=== PATIENT | female | born 1990 | race Caucasian/White ===

== ENCOUNTER 2017-09-19 08:00 | Outpatient (CLI) | payer BC ==
[2017-09-19 18:45] LABS: BASOPHILS % (AUTO) 0.6 %; EOSINOPHILS % (AUTO) 0.3 %; HCT - HEMATOCRIT 41.6 % (37.0-47.0); HGB - HEMOGLOBIN 13.9 g/dL (12.0-16.0); LYMPHOCYTES # (AUTO) 1.2 10^3/uL (1.5-3.5); LYMPHOCYTES % (AUTO) 15.7 %; MEAN CORPUSCULAR HEMOGLOBIN 30.6 pg (27.0-31.0); MEAN CORPUSCULAR HGB CONC 33.4 g/dL (32.0-36.0); MEAN CORPUSCULAR VOLUME 91.7 fL (81.0-99.0); MEAN PLATELET VOLUME 7.8 fL (7.9-10.8); MONOCYTES # (AUTO) 0.8 10^3/uL (0.0-1.0); NEUTROPHILS # (AUTO) 5.7 10^3/uL (1.5-6.6); NEUTROPHILS % (AUTO) 73.4 %; RED BLOOD COUNT 4.54 10^6/uL (4.20-5.40); RED CELL DISTRIBUTION WIDTH 13.2 % (12.0-15.0); UNCORRECTED WHITE BLOOD COUNT 7.7 x10^3/uL; WHITE BLOOD COUNT 7.7 x10^3/uL (4.8-10.8)
[2017-09-19 18:58] LABS: ALBUMIN/GLOBULIN RATIO 1.2 (1.0-2.2); BILIRUBIN,TOTAL 0.5 mg/dL (0.2-1.0); BUN - BLOOD UREA NITROGEN 8 mg/dL (6-20); CALCIUM 9.1 mg/dL (8.5-10.3); CARBON DIOXIDE - CO2 25 mmol/L (21-32); CHLORIDE 104 mmol/L (101-111); CREATININE 0.7 mg/dL (0.4-1.0); GFR - MDRD 100 (>89); GLUCOSE 87 mg/dL (70-100); POTASSIUM 3.9 mmol/L (3.5-5.0); SODIUM 138 mmol/L (135-145)
== END 2017-09-19 08:01 ==
LOC: LAB.WCP 08:00
PROVIDERS: ATTEND Physician Assistant Medical
DX: E01.0 Iodine-deficiency related diffuse (endemic) goiter (principal); B08.4 Enteroviral vesicular stomatitis with exanthem
CPT/HCPCS: 36415; 80053; 84443; 85025

== ENCOUNTER 2017-10-21 17:14 | Outpatient (CLI) | payer BC ==
--- NOTE | 2017-10-21 18:36 | Ultrasound Report ---
EXAM: THYROID ULTRASOUND EXAM DATE: 10/21/2017 05:49 PM. CLINICAL HISTORY: THYROMEGALY. COMPARISON: None. TECHNIQUE: Real time sonographic imaging of the thyroid was performed by the windows administrator. Multiple re presentative static images were saved for review. FINDINGS: THYROID GLAND: Right Lobe: 5.0 x 1.2 x 1.8 cm, volume 5.6 cc. Normal background echotexture. Right Lobe Nodules: Small hypoechoic nodule in the upper pole measuring 0.4 x 0.4 x 0.3 cm. Left Lobe: 5.3 x 0.9 x 1.6 cm, volume 4.0 cc. Normal background echotexture. Left Lobe Nodules: None. Isthmus: 0.35 cm AP. Isthmic Nodules: None. LYMPH NODES: No adenopathy demonstrated in the central or lateral compartment. OTHER: Prominent thrombus in the left jugular vein. IMPRESSION: 1. Essentially normal thyroid gland. 2. Large left jugular thrombus. Management recommendations are based on 2015 [place] [employer] Management Guidelines for A dult Patients with Thyroid Nodules and Differentiated Thyroid Cancer. RAD[facility] The above critical findings were discussed with ADRIA Rosas by Dr. Marcelo Duffy at 18:32 hrs on . Referring Provider Line: [phone] SITE ID: [id number]
== END 2017-10-21 17:15 | disposition home or self-care (01) ==
LOC: DI 17:14
PROVIDERS: ATTEND Physician Assistant Medical
DX: E01.0 Iodine-deficiency related diffuse (endemic) goiter (principal); I82.C12 Acute embolism and thrombosis of left internal jugular vein
CPT/HCPCS: 76536

== ENCOUNTER 2017-10-21 18:47 | Emergency (ER) | payer BC ==
[2017-10-21] MEDS ORDERED: ENOXAPARIN 80 MG/0.8 ML SYRINGE SUBQ STA (19:05)
--- NOTE | 2017-10-21 19:07 | ED Physician Documentation ---
History of Present Illness - Stated complaint Stated Complaint: Left Jugular Thrombus - Chief complaint Chief Complaint: General - History obtained from History obtained from: Patient, Family - History of Present Illness Timing: Other (Previously healthy 27-year-old woman with history of back surgery , a month ago she was being evaluated for cegs-njqu-zry-mouth disease, she had the associated sore throat and rash which are all now gone. During that evaluation her primary care physician noticed an enlarged thyroid. She was sent for a thyroid ultrasound, because of a scheduling issue there was a delay to having that done but she had it done tonight and it was noted and she was sent to the ER for what looks like an occlusive acute left internal jugular thrombus. She has no personal or family history of DVT. She does not have shortness of breath. She does not think she might be but it is a possibility. She has been fatigued for a month but denies any night sweats or weight loss, in fact her weight has gone up a little bit lately.) Review of Systems Ten Systems: 10 systems reviewed and negative Constitutional: reports: Fatigue. denies: Fever, Chills, Weight Loss, Sweats Ears: denies: Loss of hearing, Ear pain Nose: denies: Rhinorrhea / runny nose, Congestion Throat: denies: Sore throat PD PAST MEDICAL HISTORY - Past Medical History Past Medical History: Yes Respiratory: Other Other Past Medical History: exercise induced asthma - Past Surgical History Past Surgical History: Yes Ortho: Spine surgery - Present Medications Home Medications: Ambulatory Orders Medication Instructions Recorded Confirmed Rivaroxaban [Xarelto] 15 mg PO BID #42 tablet 10/21/17 Rivaroxaban [Xarelto] 20 mg PO DAILY #30 tablet 10/21/17 - Allergies Allergies/Adverse Reactions: Allergies Allergy/AdvReac Type Severity Reaction Status Date / Time No Known Drug Allergies Allergy Verified 10/21/17 18:55 - Social History Does the pt smoke?: No Smoking Status: Never smoker Does the pt drink ETOH?: No Does the pt have substance abuse?: No - Family History Family history: reports: Non contributory - Immunizations Immunizations are current?: Yes - POLST Patient has POLST: No PD ED PE NORMAL - Vitals Vital signs reviewed: Yes - General General: Alert and oriented X 3, No acute distress - HEENT HEENT: PERRL, EOMI, Ears normal, Other (Face is without plethora) - Neck Neck: Supple, no meningeal sign, No bony TTP - Cardiac Cardiac: RRR, No murmur - Respiratory Respiratory: No respiratory distress, Clear bilaterally - Abdomen Abdomen: Normal bowel sounds, Soft, Non tender - Back Back: No CVA TTP, No spinal TTP - Derm Derm: Normal color, Warm and dry - Extremities Extremities: No edema, No calf tenderness / cord - Neuro Neuro: Alert and oriented X 3, bleacher operator 2-12 intact, Normal speech Eye Opening: Spontaneous Motor: Obeys Commands Verbal: Oriented GCS Score: 15 - Psych Psych: Normal mood, Normal affect Results - Vitals Vitals: Vital Signs - 24 hr 10/21/17 10/21/17 18:50 20:44 Temperature 36.3 C L Heart Rate 77 76 Respiratory 18 18 Rate Blood Pressure 134/78 H 144/74 H O2 Saturation 100 98 Oxygen O2 Source Room air - Labs Labs: Laboratory Tests 10/21/17 10/21/17 10/21/17 19:15 19:15 19:15 WBC 9.6 RBC 4.28 Hgb 13.0 Hct 38.7 MCV 90.5 MCH 30.5 MCHC 33.7 RDW 12.9 Plt Count 373 MPV 6.9 L Neut # 6.0 Lymph # 2.8 [place] # 0.6 Eos # 0.2 Baso # 0.1 Absolute Nucleated RBC 0.00 Nucleated RBC % 0.0 ESR PT 12.0 INR 1.1 APTT 32.6 Sodium 138 Potassium 3.4 L Chloride 101 Carbon Dioxide 25 Anion Gap 12.0 BUN 10 Creatinine 0.7 Estimated GFR (MDRD) 100 Glucose 96 Calcium 9.5 Total Bilirubin 0.6 AST 18 ALT 14 Alkaline Phosphatase 65 Total Protein 7.6 Albumin 4.5 Globulin 3.1 Albumin/Globulin Ratio 1.5 Lipase 17 L Urine Color Urine Clarity Urine pH Ur Specific [place] Urine Protein Urine Glucose (UA) Urine Ketones Urine Occult Blood Urine Nitrite Urine Bilirubin Urine Urobilinogen Ur Leukocyte Esterase Urine RBC Urine WBC Ur Squamous Epith Cells Urine Bacteria Ur Microscopic Review Urine Culture Comments Urine HCG, Qual 10/21/17 10/21/17 19:15 19:30 WBC RBC Hgb Hct MCV MCH MCHC RDW Plt Count MPV Neut # Lymph # [place] # Eos # Baso # Absolute Nucleated RBC Nucleated RBC % ESR 8 PT INR APTT Sodium Potassium Chloride Carbon Dioxide Anion Gap BUN Creatinine Estimated GFR (MDRD) Glucose Calcium Total Bilirubin AST ALT Alkaline Phosphatase Total Protein Albumin Globulin Albumin/Globulin Ratio Lipase Urine Color YELLOW Urine Clarity CLEAR Urine pH 6.0 Ur Specific [place] 1.010 Urine Protein NEGATIVE Urine Glucose (UA) NEGATIVE Urine Ketones NEGATIVE Urine Occult Blood LARGE H Urine Nitrite NEGATIVE Urine Bilirubin NEGATIVE Urine Urobilinogen 0.2 (NORMAL) Ur Leukocyte Esterase NEGATIVE Urine RBC 6-10 H Urine WBC 4-5 Ur Squamous Epith Cells MOD Squamous H Urine Bacteria Few Ur Microscopic Review INDICATED Urine Culture Comments NOT INDICATED Urine HCG, Qual NEGATIVE PD MEDICAL DECISION MAKING - ED course ED course: 27-year-old woman with unprovoked left internal jugular clot. She was administered Lovenox here, initial labs were normal. Case discussed by phone with oncology/hematology,, Dr. Maldonado who agreed with the initial workup and recommended outpatient follow-up and an anticoagulant of our choice without specific recommendation there. Spoke with Dr. Camarillo, her PCP who agreed with Xarelto and will see her in follow-up and arrange for hematology consultation. Departure - Departure Disposition: 01 Home, Self Care Clinical Impression: Internal jugular vein thrombosis Qualifiers: Laterality: left Qualified Code(s): I82.C12 - Acute embolism and thrombosis of left internal jugular vein Condition: Good Record reviewed to determine appropriate education?: Yes Instructions: ED DVT Follow-Up: Joey Camarillo MD [Primary Care Provider] - Tomorrow Prescriptions: Rivaroxaban [Xarelto] 15 mg PO BID #42 tablet Rivaroxaban [Xarelto] 20 mg PO DAILY #30 tablet Discharge Date/Time: 10/21/17 20:46
[2017-10-21 19:25] LABS: BASOPHILS # (AUTO) 0.1 10^3/uL (0.0-0.1); BASOPHILS % (AUTO) 0.8 %; EOSINOPHILS # (AUTO) 0.2 10^3/uL (0.0-0.7); EOSINOPHILS % (AUTO) 1.8 %; HCT - HEMATOCRIT 38.7 % (37.0-47.0); LYMPHOCYTES # (AUTO) 2.8 10^3/uL (1.5-3.5); LYMPHOCYTES % (AUTO) 28.7 %; MEAN CORPUSCULAR HEMOGLOBIN 30.5 pg (27.0-31.0); MEAN CORPUSCULAR HGB CONC 33.7 g/dL (32.0-36.0); MEAN CORPUSCULAR VOLUME 90.5 fL (81.0-99.0); MEAN PLATELET VOLUME 6.9 fL (7.9-10.8); MONOCYTES # (AUTO) 0.6 10^3/uL (0.0-1.0); MONOCYTES % (AUTO) 6.3 %; NEUTROPHILS % (AUTO) 62.4 %; RED BLOOD COUNT 4.28 10^6/uL (4.20-5.40); RED CELL DISTRIBUTION WIDTH 12.9 % (12.0-15.0); UNCORRECTED WHITE BLOOD COUNT 9.6 x10^3/uL; WHITE BLOOD COUNT 9.6 x10^3/uL (4.8-10.8)
[2017-10-21 19:31] LABS: INR 1.1 (0.8-1.2)
[2017-10-21 19:36] LABS: ALBUMIN/GLOBULIN RATIO 1.5 (1.0-2.2); BILIRUBIN,TOTAL 0.6 mg/dL (0.2-1.0); CALCIUM 9.5 mg/dL (8.5-10.3); CREATININE 0.7 mg/dL (0.4-1.0); POTASSIUM 3.4 mmol/L (3.5-5.0); TOTAL PROTEIN 7.6 g/dL (6.7-8.2)
[2017-10-21 19:38] LABS: PARTIAL THROMBOPLASTIN TIME 32.6 secs (24.9-33.3)
[2017-10-21 19:40] LABS: BILIRUBIN,URINE NEGATIVE (NEGATIVE)
[2017-10-21 19:41] LABS: UA w/ MICROSCOPIC CHARGE YES
[2017-10-21 19:42] LABS: HCG UR QUAL NEGATIVE
[2017-10-21 19:47] LABS: UR CULTURE IF IND NOT INDICATED
--- NOTE | 2017-10-21 20:03 | XRAY Preliminary Report ---
Exam: XR CHEST 2 VIEW PA/LAT IMPRESSION: Negative chest. [facility] SITE ID: [id number]
--- NOTE | 2017-10-21 20:06 | XRAY Report ---
EXAM: CHEST RADIOGRAPHY EXAM DATE: 10/21/2017 07:38 PM. CLINICAL HISTORY: Spontaneous IJ thrombus. COMPARISON: None. TECHNIQUE: 2 views. FINDINGS: Lungs/Pleura: No focal opacities evident. No pleural effusion. No pneumothorax. Normal volumes. Mediastinum: Heart and mediastinal contours are unremarkable. Other: None. IMPRESSION: Negative chest. [facility] Referring Provider Line: [phone] SITE ID: [id number]
[2017-10-21 20:45] VITALS: BP 144/74
== END 2017-10-21 20:46 | disposition home or self-care (01) ==
LOC: ED 18:47
DX: I82.C12 Acute embolism and thrombosis of left internal jugular vein (principal)
CPT/HCPCS: 36415; 71020; 76536; 80053; 81001; 81025; 81241; 83690; 85025; 85303; 85610; 85651; 85730; 86147; 96372; 99283; 99284; J1650; 81003; 87086

== ENCOUNTER 2018-06-25 13:06 | Outpatient (CLI) | payer BC ==
--- NOTE | 2018-06-25 14:39 | Ultrasound Report ---
Procedure Date: 06/25/2018 Accession Number: [id number] / [id number] Procedure: US - OB First Trimester CPT Code: FULL RESULT: EXAM: FIRST TRIMESTER OBSTETRIC ULTRASOUND (Less than 11 weeks) EXAM DATE: 06/25/2018 02:03 PM. CLINICAL HISTORY: ENCOUNTER FOR TEST, RESULT POSITIVE. LMP: 04/18/2018. COMPARISONS: None. TECHNIQUE: Transabdominal and transvaginal ultrasound examination with static image documentation. CLINICAL DATES: EGA 9 weeks 5 days with MONTRELL 01/23/2019 based on LMP. ASSESSMENT: Gestational Sac: Single intrauterine. Mean gestational sac diameter: 43.9 mm = 9 weeks 6 days. Embryo: CRL (crown-rump length) 33.1 mm = 10 weeks 1 day. Cardiac activity: 161 beats per minute. Yolk sac: 3.8 mm. Amniotic fluid: Not accurately assessed at this gestational age. Early placenta: Not visible at this gestational age. Other: No perigestational fluid collection demonstrated. MATERNAL STRUCTURES: Uterus: Anteverted. Unremarkable. Cervix: Closed. Right Ovary/Adnexa: Unremarkable. The ovary measures 3.9 x 2.1 x 2.8 cm, volume 12 cc. Left Ovary/Adnexa: Unremarkable. The ovary measures 4 x 2.7 x 2.6 cm, volume 14.7 cc. Free Fluid: None. Other: None. IMPRESSION: 1. Single intrauterine at EGA 10 weeks 1 day with MONTRELL 01/20/2019 based on crown-rump length, which is concordant with clinical dates. 2. Assigned dating is MONTRELL 01/23/2019 based on LMP. MARKELL
== END 2018-06-25 13:07 | disposition home or self-care (01) ==
LOC: DI 13:06
PROVIDERS: ATTEND Nurse Practitioner Obstetrics & Gynecology
DX: Z32.01 Encounter for pregnancy test, result positive (principal)
CPT/HCPCS: 76801; 76817

== ENCOUNTER 2018-06-30 14:30 | Outpatient (CLI) | payer BC ==
[2018-06-30 16:08] LABS: MUDS CUTOFF CONCENTRATIONS CUTOFF CONC BELOW:
[2018-06-30 16:23] LABS: AMPHETAMINE SCREEN,URINE NEGATIVE (NEGATIVE); BENZODIAZEPINES SCREEN, URINE NEGATIVE (NEGATIVE); COCAINE SCREEN URINE NEGATIVE (NEGATIVE); METHADONE SCREEN, URINE NEGATIVE (NEGATIVE); METHAMPHETAMINES SCREEN, URINE NEGATIVE (NEGATIVE); OPIATE SCREEN, URINE NEGATIVE (NEGATIVE); OXYCODONE SCREEN, URINE NEGATIVE (NEGATIVE); PROPOXYPHENE SCREEN, URINE NEGATIVE (NEGATIVE); TRICYCLIC ANTIDEPRESSANT,URINE NEGATIVE (NEGATIVE)
== END 2018-06-30 14:31 | disposition home or self-care (01) ==
LOC: LAB.R 14:30
PROVIDERS: ATTEND Nurse Practitioner Obstetrics & Gynecology
DX: Z36.9 Encounter for antenatal screening, unspecified (principal)
CPT/HCPCS: 80306

== ENCOUNTER 2018-06-30 15:11 | Outpatient (CLI) | payer BC ==
[2018-06-30 15:30] LABS: BASOPHILS # (AUTO) 0.1 10^3/uL (0.0-0.1); BASOPHILS % (AUTO) 0.6 %; EOSINOPHILS # (AUTO) 0.1 10^3/uL (0.0-0.7); EOSINOPHILS % (AUTO) 0.5 %; HGB - HEMOGLOBIN 13.5 g/dL (12.0-16.0); LYMPHOCYTES # (AUTO) 1.9 10^3/uL (1.5-3.5); LYMPHOCYTES % (AUTO) 20.5 %; MEAN CORPUSCULAR HEMOGLOBIN 31.2 pg (27.0-31.0); MEAN CORPUSCULAR HGB CONC 34.7 g/dL (32.0-36.0); MEAN CORPUSCULAR VOLUME 89.8 fL (81.0-99.0); MONOCYTES # (AUTO) 0.6 10^3/uL (0.0-1.0); MONOCYTES % (AUTO) 6.1 %; NEUTROPHILS # (AUTO) 6.8 10^3/uL (1.5-6.6); NEUTROPHILS % (AUTO) 72.3 %; PLT - PLATELET COUNT 326 10^3/uL (130-450); RED BLOOD COUNT 4.34 10^6/uL (4.20-5.40); RED CELL DISTRIBUTION WIDTH 12.9 % (12.0-15.0); WHITE BLOOD COUNT 9.4 x10^3/uL (4.8-10.8)
[2018-06-30 15:43] LABS: BILIRUBIN,URINE NEGATIVE (NEGATIVE); GLUCOSE, URINE (UA) NEGATIVE (NEGATIVE); KETONES,URINE (UA) NEGATIVE (NEGATIVE); LEUKOCYTE ESTERASE, URINE NEGATIVE (NEGATIVE); NITRITE,URINE NEGATIVE (NEGATIVE); OCCULT BLOOD,URINE NEGATIVE (NEGATIVE); PROTEIN,URINE NEGATIVE (NEGATIVE); UROBILINOGEN,URINE 0.2 (NORMAL) E.U./dL (NORMAL)
[2018-06-30 15:51] LABS: CLARITY,URINE CLEAR (CLEAR)
[2018-06-30 15:52] LABS: BACTERIA,URINE Moderate /HPF (None Seen); RBC,URINE None Seen /HPF (0-5); SQUAMOUS EPITHELIAL CELL,UR MANY Squamous (<= Few)
[2018-07-01 09:12] LABS: HEPATITIS B SURFACE ANTIGEN NON-REACTIVE (NON-REACTIVE)
[2018-07-01 14:12] LABS: HEPATITIS C ANTIBODY NON-REACTIVE (NON-REACTIVE)
[2018-07-01 14:21] LABS: HIV AG/AB 4TH GEN NON-REACTIVE (NON-REACTIVE)
== END 2018-06-30 15:12 | disposition home or self-care (01) ==
LOC: LAB 15:11
PROVIDERS: ATTEND Nurse Practitioner Obstetrics & Gynecology
DX: Z36.9 Encounter for antenatal screening, unspecified (principal)
CPT/HCPCS: 36415; 80306; 81001; 81599; 85025; 86592; 86762; 86803; 86850; 86900; 86901; 87340; 87389

== ENCOUNTER 2018-09-02 12:34 | Outpatient (CLI) | payer BC ==
--- NOTE | 2018-09-02 16:06 | Ultrasound Report ---
Reason: ENCTR FOR SCREENING Procedure Date: 09/02/2018 Accession Number: [id number] / [id number] Procedure: US - OB Detailed Eval CPT Code: FULL RESULT: EXAM: COMPLETE OBSTETRICAL ULTRASOUND EXAM DATE: 09/02/2018 03:00 PM. CLINICAL HISTORY: anatomic survey. COMPARISON: 09/02/2018 2:57 PM. TECHNIQUE: Real-time sonographic evaluation of the fetus performed by the turn laster. Multiple jewelry sales representative static images were saved for review. DATING: Established EGA 20 weeks and 0 days with MONTRELL 01/20/2019 based on physician stated established gestational age. EGA 20 weeks 2 days with MONTRELL 01/18/2019 based on the current ultrasound. GENERAL EVALUATION Plascencia . Cardiac activity: 140 bpm. movement: Visualized. Presentation: Cephalic. Placenta: Posterior position. No evidence for previa. Umbilical cord: 3 vessel cord. Central placental cord origin. Amniotic fluid: JANICE 13.4 MVP 4.6 cm. BIOMETRY Bi-Parietal Diameter (BPD): 4.7 cm, 20 weeks 1 day. Head Circumference (HC): 17.4 cm, 20 weeks 0 days. Abdominal Circumference (AC): 15.5 cm, 20 weeks 5 days. Femur Length (FL): 3.2 cm, 20 weeks 0 days. Estimated Weight: 347 g, 64th percentile for 20 weeks 0 days. ANATOMY The intracranial structures, profile, face/nose/lips, spine, 4 chamber heart and outflow tracts, stomach, abdominal wall and cord insertion, diaphragm, kidneys, bladder, and extremities were visualized and demonstrate no abnormality. MATERNAL STRUCTURES Uterus: Unremarkable. Cervix: Long and closed. Transabdominal length 4.6 cm. Right ovary/adnexa: Unremarkable. Left ovary/adnexa: Unremarkable. Free fluid: None. IMPRESSION: 1. Plascencia live intrauterine with gestational age 20 weeks 0 days based on physician stated established gestational age. 2. Estimated weight is within expected limits for assigned dating. 3. Normal anatomic survey. No anatomic abnormalities are detected at this time. RADIA
== END 2018-09-02 12:35 | disposition home or self-care (01) ==
LOC: DI 12:34
PROVIDERS: ATTEND Obstetrics & Gynecology
DX: Z36.9 Encounter for antenatal screening, unspecified (principal); Z3A.20 20 weeks gestation of pregnancy
CPT/HCPCS: 76811

== ENCOUNTER 2019-03-08 15:49 | Inpatient (IN) | payer BC ==
--- NOTE | 2019-03-08 16:14 | ED Physician Documentation ---
History of Present Illness - Stated complaint Stated Complaint: CLOGGED MILK DUCT - Chief complaint Chief Complaint: General - History obtained from History obtained from: Patient - History of Present Illness Timing: Other (28-year-old woman is breast-feeding a 7-week-old has had a clogged duct on the left breast for a week with increased pain and redness today and a low-grade fever the other day up to 100.1.) Review of Systems Ten Systems: 10 systems reviewed and negative Constitutional: reports: Fever Nose: reports: Reviewed and negative Cardiac: reports: Reviewed and negative Respiratory: reports: Reviewed and negative PD PAST MEDICAL HISTORY - Past Medical History Respiratory: Other - Past Surgical History Past Surgical History: Yes Ortho: Spine surgery - Present Medications Home Medications: Ambulatory Orders Medication Instructions Recorded Confirmed Rivaroxaban [Xarelto] 15 mg PO BID #42 tablet 10/21/17 Rivaroxaban [Xarelto] 20 mg PO DAILY #30 tablet 10/21/17 - Allergies Allergies/Adverse Reactions: Allergies Allergy/AdvReac Type Severity Reaction Status Date / Time No Known Drug Allergies Allergy Verified 10/21/17 18:55 - Social History Does the pt smoke?: No Smoking Status: Never smoker Does the pt drink ETOH?: No Does the pt have substance abuse?: No - Immunizations Immunizations are current?: Yes - POLST Patient has POLST: No PD ED PE NORMAL - Vitals Vital signs reviewed: Yes - General General: Alert and oriented X 3, No acute distress - HEENT HEENT: PERRL, EOMI - Neck Neck: Supple, no meningeal sign, No bony TTP - Cardiac Cardiac: RRR, No murmur - Respiratory Respiratory: No respiratory distress, Clear bilaterally - Abdomen Abdomen: Non tender - Back Back: No CVA TTP, No spinal TTP - Derm Derm: Other (Breast exam done with Sunrise at bedside and chaperoning. Fullness of the superior breast with overlying mastitis and tenderness concerning for breast abscess.) - Extremities Extremities: No edema, No calf tenderness / cord - Neuro Neuro: Alert and oriented X 3, Normal speech - Psych Psych: Normal mood, Normal affect Results - Vitals Vitals: Vital Signs - 24 hr 03/08/19 15:50 Temperature 36.9 C Heart Rate 104 H Respiratory 14 Rate Blood Pressure 137/68 H O2 Saturation 98 Oxygen O2 Source Room air - Labs Labs: Laboratory Tests 03/08/19 03/08/19 16:24 16:24 WBC 17.7 H RBC 4.01 L Hgb 12.3 Hct 36.5 L MCV 91.1 MCH 30.7 MCHC 33.7 RDW 13.0 Plt Count 366 MPV 6.9 L Neut # (Auto) 13.2 H Lymph # (Auto) 2.7 [place] # (Auto) 1.6 H Eos # (Auto) 0.2 Baso # (Auto) 0.1 Absolute Nucleated RBC 0.00 Nucleated RBC % 0.0 Sodium 139 Potassium 3.6 Chloride 101 Carbon Dioxide 26 Anion Gap 12.0 BUN 12 Creatinine 0.7 Estimated GFR (MDRD) 99 Glucose 109 H Calcium 9.4 - Rads (name of study) L breast sono Radiology: EMP read contemporaneously (10x6x4 breast abscess) PD MEDICAL DECISION MAKING - ED course ED course: 28-year-old woman with mastitis for a week and exam concerning for breast abscess as proven on ultrasound. Spoke with the on-call surgeon, Dr. Serge Zhang at 5:55 PM and he will be in to see the patient. Departure - Departure Disposition: ED Transfer to [facility] Clinical Impression: Breast abscess Condition: Good
[2019-03-08 16:29] LABS: BASOPHILS # (AUTO) 0.1 10^3/uL (0.0-0.1); BASOPHILS % (AUTO) 0.4 %; EOSINOPHILS # (AUTO) 0.2 10^3/uL (0.0-0.7); EOSINOPHILS % (AUTO) 0.9 %; HGB - HEMOGLOBIN 12.3 g/dL (12.0-16.0); LYMPHOCYTES # (AUTO) 2.7 10^3/uL (1.5-3.5); LYMPHOCYTES % (AUTO) 15.1 %; MEAN CORPUSCULAR HEMOGLOBIN 30.7 pg (27.0-31.0); MEAN CORPUSCULAR HGB CONC 33.7 g/dL (32.0-36.0); MEAN CORPUSCULAR VOLUME 91.1 fL (81.0-99.0); MEAN PLATELET VOLUME 6.9 fL (7.9-10.8); MONOCYTES # (AUTO) 1.6 10^3/uL (0.0-1.0); MONOCYTES % (AUTO) 9.1 %; NEUTROPHILS # (AUTO) 13.2 10^3/uL (1.5-6.6); NEUTROPHILS % (AUTO) 74.5 %; PLT - PLATELET COUNT 366 10^3/uL (130-450); RED BLOOD COUNT 4.01 10^6/uL (4.20-5.40); WHITE BLOOD COUNT 17.7 x10^3/uL (4.8-10.8)
[2019-03-08 16:40] LABS: CALCIUM 9.4 mg/dL (8.5-10.3); CREATININE 0.7 mg/dL (0.4-1.0)
--- NOTE | 2019-03-08 17:46 | Ultrasound Report ---
Reason: mastitis, eval for abscess, left Procedure Date: 03/08/2019 Accession Number: [id number] / [id number] Procedure: US - Breast Unilateral Limited CPT Code: FULL RESULT: EXAM: LIMITED BREAST ULTRASOUND EXAM DATE: 03/08/2019 05:13 PM CLINICAL HISTORY: Left breast mastitis. Concern for periareolar abscess. COMPARISON: None. TECHNIQUE: Targeted ultrasound was performed of the left breast in the retroareolar area. Color Doppler was employed as appropriate. FINDINGS: Large complex dense appearing thick-walled retroareolar abnormality with increased peripheral vascularity 8.4 x 4.2 x 10.1 cm extending into the upper inner quadrant. IMPRESSION: Large complex retroareolar abnormality extending into the upper inner quadrant compatible with breast abscess. This limited breast ultrasound was tailored to address the acute clinical issue. Recommend diagnostic follow-up at a designated FDA/MQSA certified breast imaging facility for more detailed and complete evaluation. RADIA
[2019-03-08] MEDS ORDERED: CLINDAMYCIN 600 MG/50 ML 50 ML IV ONE (17:55)
--- NOTE | 2019-03-08 18:59 | CONSULTATION NOTE ---
Referring Provider Name of Referring Provider:: Dr. Bragg Consult Date: 03/08/19 Chief Complaint - Chief Complaint Chief Complaint: Left breast abscess History of Present Illness - Admitted From Admitted From:: ER - History Obtained From Records Reviewed: yes History obtained from: pt Exam Limitations: none - History of Present Illness HPI Comment/Other: 28 yo woman, 7 weeks , breast feeding her infant, with 10 day hx of tender lump in her left breast, for which she saw her OB, Dr. Cardoso, who diagnosed a "plugged duct" and recommended warm compresses, massage, continued breast feeding, but 2 days ago the pain, swelling and tenderness increased along with redness and fever. She presented to the ER today for evaluation. No hx prior similar problem; no hx of prior infections or MRSA. No sx on the right. Evaluation in the ER included a limited left breast US which showed a thick walled complex cystic subareolar mass extending into the UIQ, measuring 8 x 4 x 10 cm, c/w an abscess. Surgical consultation was requested. History - Past Medical History Cardiovascular: reports: Other (2017 incidentally noted to have left internal jugular vein occlusion. W/u neg per pt. 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 HEENT: reports: None Psych: reports: None Musculoskeletal: reports: None MRSA Hx?: No - Past Surgical History Ortho: reports: Spine surgery (lumbar laminectomy) - Family & Social History Family History Comment/Other: N/A Living arrangement: At home Living Situation: With family - Substance History Use: Uses substance without health or social issues: Alcohol (less than one dri nk/day) Abuse: Recurrent use of substance despite neg consequences: NONE Dependence: Experiences withdrawal or developed tolerances: NONE - POLST Patient has POLST: No POLST Status: Full Code Meds/Allgy - Allergies Allergies/Adverse Reactions: Allergies Allergy/AdvReac Type Severity Reaction Status Date / Time No Known Drug Allergies Allergy Verified 10/21/17 18:55 Review of Systems - Constitutional Constitutional: reports: Fever - Musculoskeletal Musculoskeletal: reports: Other (s/p lumbar laminectomy) - Hematologic/Lymphatic Hematologic/Lymphatic: reports: Blood clots (left IJ thrombosis noted incidentally in 2017 during thyroid us; anticoagulated during ) - All Other Systems All Other Systems: reports: Reviewed and negative Exam - Vital Signs Reviewed Vital Signs: Yes Vital Signs: Vital Signs x48h Temp Pulse Resp BP Pulse Ox 03/08/19 17:55 97 16 123/83 H 100 03/08/19 15:50 36.9 C 104 H 14 137/68 H 98 - Physical Exam General Appearance: positive: Alert, Mild distress Eyes Bilateral: positive: Normal inspection, PERRL, EOMI, No lid inflammation, Conjunctivae nml, No scleral icterus ENT: positive: ENT inspection nml, Pharynx nml, No signs of dehydration Neck: positive: Nml inspection, Thyroid nml, No JVD, Trachea midline. negative: Thyromegaly, Lymphadenopathy (R), Lymphadenopathy (L) Respiratory: positive: Chest non-tender, No respiratory distress, Breath sounds nml. negative: Wheezes, Rales, Rhonchi Cardiovascular: positive: Regular rate & rhythm, No murmur, No gallop Abdomen: positive: Non-tender, No organomegaly. negative: Mass Skin: positive: Color nml, Warm, Dry Comments/Other: BREAST EXAM: Right: nl to inspection/palpation Left: diffusely swollen and enlarged compared to the right erythema periareolar region extending into the UIQ and UOQ up to 8 cm; limits marked with indelible ink. diffuse tenderness and possible maximal fluctuance in UIQ adjacent to nipple areolar complex no axillary lymphadenopathy appreciated. Conclusion/Plan - Diagnosis Diagnosis: Left breast infection with mastitis, cellulitis, and abscess, and sepsis secondary to same. - Plan Plan: To OR for incision and drainage; admit for IV antibiotic therapy until signs of sepsis have resolved. PAR conference with pt and consent obtained. - Lab Results Fish Bones: 03/08/19 16:24 03/08/19 16:24 - Diagnostic Imaging Results Diagnostic Imaging Results: positive: Final report reviewed, Read independently Diagnostic Imaging Results Comments: See HPI
--- NOTE | 2019-03-08 19:33 | ANESTHESIA ---
Pre-Anesthesia VS, & Labs - Diagnosis Diagnosis Left breast infection with mastitis, cellulitis, and abscess, and sepsis secondary to same. - Procedure I and D left breast Vital Signs: Temp Pulse Resp BP Pulse Ox 36.9 C 102 H 16 134/82 H 94 03/08/19 15:50 03/08/19 19:24 03/08/19 19:24 03/08/19 19:24 03/08/19 19:24 Height 5 ft 8 in Weight (kg) 75.659 kg Body Mass Index 25.3 - NPO >8 hours Last Food Intake: 1100 - Is Patient ?: No - Lab Results Current Lab Results: Laboratory Tests 03/08/19 16:24: Sodium 139, Potassium 3.6, Chloride 101, Carbon Dioxide 26, Anion Gap 12.0, BUN 12, Creatinine 0.7, Estimated GFR (MDRD) 99, Glucose 109 H, Calcium 9.4 03/08/19 16:24: WBC 17.7 H, RBC 4.01 L, Hgb 12.3, Hct 36.5 L, MCV 91.1, MCH 30.7, MCHC 33.7, RDW 13.0, Plt Count 366, MPV 6.9 L, Neut # (Auto) 13.2 H, Lymph # (Auto) 2.7, [place] # (Auto) 1.6 H, Eos # (Auto) 0.2, Baso # (Auto) 0.1, Absolute Nucleated RBC 0.00, Nucleated RBC % 0.0 Fish Bones: 03/08/19 16:24 03/08/19 16:24 Home Medications and Allergies Allergies/Adverse Reactions: Allergies Allergy/AdvReac Type Severity Reaction Status Date / Time No Known Drug Allergies Allergy Verified 10/21/17 18:55 Anes History & Medical History - Anesthetic History Anesthesia Complications: reports: No previous complications Family history of Anesthesia Complications: Denies Family history of Malignant Hyperthermia: Denies - Medical History Cardiovascular: reports: None, Other (2017 incidentally noted to have left internal jugular vein occlusion. W/u neg per pt. Asympt.) Pulmonary: reports: None, Other Gastrointestinal: reports: None Urinary: reports: None Neuro: reports: None Musculoskeletal: reports: None Endocrine/Autoimmune: reports: None Smoking Status: Never smoker Psychosocial: reports: No issues indicated - Surgical History Neurologic: Other (Back surgery) Orthopedic: Spine surgery (lumbar laminectomy) Exam General: Alert, Oriented x3 Dental: WNL Mouth Opening: Greater than 4 Fingerbreadths Neck Mobility: Normal Mallampati classification: I Thyromental Distance: greater than 6 cm Respiratory: Lungs clear Cardiovascular: Regular rate Neurological: Normal speech Mental/Cognitive Status: Alert/Oriented X3 Cognitive Status: Within normal limits Plan Anesthesia Type: General Consent for Procedure(s) Verified and Reviewed: Yes Code Status: Attempt Resuscitation ASA classification: 1-Healthy patient Is this case an emergency?: Yes
[2019-03-08 19:58] LABS: HCG UR QUAL NEGATIVE
[2019-03-08] MEDS ORDERED: BUPIVACAINE 0.5%-EPI 1:200000 PF 30 ML VIAL ONE (20:01)
[2019-03-08] MEDS ORDERED: SODIUM CHLORIDE 0.9% 1,000 ML IV ONE (20:08)
[2019-03-08] MEDS ORDERED: DEXAMETHASONE 4 MG/ML VIAL IVP ONE (20:30)
[2019-03-08] MEDS ORDERED: KETOROLAC 30 MG/ML VIAL IVP ONE (20:30)
[2019-03-08] MEDS ORDERED: LIDOCAINE-MPF 1% 5 ML VIAL SUBQ ONE (20:30)
[2019-03-08] MEDS ORDERED: MIDAZOLAM 2 MG/2 ML VIAL IVP ONE (20:30)
[2019-03-08] MEDS ORDERED: ONDANSETRON 4 MG/2 ML VIAL IVP ONE (20:30)
[2019-03-08] MEDS ORDERED: fentaNYL 100 MCG/2 ML VIAL IVP ONE (20:30)
[2019-03-08] MEDS ORDERED: PROPOFOL 200 MG/20 ML VIAL IVP ONE (20:30)
[2019-03-08] MEDS ORDERED: BUPIVACAINE 0.5%-EPI 1:200000 PF 30 ML VIAL SUBQ ONE (20:52)
[2019-03-08] MEDS ORDERED: LACTATED RINGERS 1,000 ML IV ONE (20:53)
[2019-03-08] MEDS ORDERED: ONDANSETRON 4 MG/2 ML VIAL ONE (21:27)
[2019-03-08] MEDS ORDERED: SODIUM CHLORIDE FLUSH 0.9% 10 ML SYRINGE IVP PRN (21:28)
[2019-03-08] MEDS ORDERED: ACETAMINOPHEN 325 MG TABLET PO PRN (21:28)
--- NOTE | 2019-03-08 21:38 | OPERATIVE REPORT ---
Operative Report - General Procedure Date: 03/08/19 Planned Procedure: I & D left breast abscess Pre-Op Diagnosis: Left breast abscess Procedure Performed: I & D left breast abscess; incisional biopsy left breast. Post Op Diagnosis: same - Procedure Note Primary Surgeon: Serge Zhang MD FACS Anesthesia Provider: Aikl Ferreira CRNA Anesthesia Technique: General ET tube Pathology: breast tissue Estimated Blood Loss (mL): 20 Drain/Tube Type: Luis Indications: 28 yo lactating woman with large left breast abscess with cellulitis and sepsis. Findings: Large subareolar breast abscess containing milky white viscous purulent material; cavity measured approximately 10 cm in greatest dimension. Complications: None - Other Other Information/Narrative: After informed consent pt was taken to the OR and placed under general endotracheal anesthesia. Preop preparation included application of SCDs and therapeutic administration of IV clindamycin. The left breast which had been marked was prepped and draped in the usual sterile fashion. Using an 18# needle and syringe a small amount of thick viscous white purulent material was aspirated percutaneously and sent for gm stain and cultures, aerobic and anaerobic. Next a #15 scalpel was used to make a 2 cm incision at the medial edge of the nipple areolar complex in the direction of skin lines down into the breast parenchyma until the abscess cavity was entered. A sample of the abscess wall was excised and sent for pathologic evaluation. The abscess cavity was drained, digitally explored and loculations broken donw, and the cavity was then irrigated with sterile saline using a pulse lavage system. After hemostasiis was achieved with electrocautery, a 1/2" luis drain was inserted into the abscess cavity and secured to the skin with a 3-0 nylon suture. A dry sterile dressing was applied and the procedure terminated without apparent complication. Sponge and needle counts were correct x 2. Pt tolerated the procedure well.
[2019-03-08] MEDS: IBUPROFEN 600 MG TABLET PO PRN (22:21)
[2019-03-09] MEDS: PIPERACILLIN/TAZOBACTAM 3.375 GM in SODIUM CHLORIDE 0.9% MINIBAG 100 ML IV SCH ×4 (00:20→17:44)
[2019-03-09] MEDS ORDERED: SODIUM CHLORIDE FLUSH 0.9% 10 ML SYRINGE ONE (00:25)
[2019-03-09] MEDS: SODIUM CHLORIDE FLUSH 0.9% 10 ML SYRINGE IVP SCH ×3 (00:27→17:20)
[2019-03-09 05:56] LABS: BASOPHILS % (AUTO) 0.1 %; HGB - HEMOGLOBIN 10.9 g/dL (12.0-16.0); LYMPHOCYTES # (AUTO) 1.7 10^3/uL (1.5-3.5); LYMPHOCYTES % (AUTO) 10.4 %; MEAN CORPUSCULAR VOLUME 91.1 fL (81.0-99.0); MEAN PLATELET VOLUME 7.3 fL (7.9-10.8); MONOCYTES # (AUTO) 0.6 10^3/uL (0.0-1.0); MONOCYTES % (AUTO) 3.8 %; NEUTROPHILS # (AUTO) 14.1 10^3/uL (1.5-6.6); NEUTROPHILS % (AUTO) 85.7 %; PLT - PLATELET COUNT 333 10^3/uL (130-450); RED BLOOD COUNT 3.51 10^6/uL (4.20-5.40); RED CELL DISTRIBUTION WIDTH 12.9 % (12.0-15.0); WHITE BLOOD COUNT 16.5 x10^3/uL (4.8-10.8)
[2019-03-09] MEDS ORDERED: ENOXAPARIN 40 MG/0.4 ML SYRINGE SUBQ SCH (09:00)
--- NOTE | 2019-03-09 10:14 | PROVIDER PROGRESS NOTE ---
Subjective - General Admit Date: 03/08/19 Procedure Date: 03/08/19 Post Op Days: 1 Procedure Performed: I & D left breast abscess - Review of Systems Wound/Incisions: positive: Healing well, Drainage (minimal, serosanguinous), Erythema improving Drain Type: luis Drain Output Description: serosanguinous Approximate mls Output: 5-10 ml General: positive: No symptoms Pulmonary: positive: No symptoms Cardiovascular: positive: No symptoms Gastrointestinal: positive: No symptoms Genitourinary: positive: No symptoms Objective - Patient Data Reviewed Vital Signs: Yes Vital Signs: Vital Signs x48h Temp Pulse Resp BP Pulse Ox 03/09/19 08:36 36.4 C L 64 18 102/59 L 98 03/09/19 06:20 36.4 C L 56 L 16 100/50 L 98 Weight: Weight 03/07/19 03/08/19 03/09/19 23:59 23:59 23:59 Weight (kg) 81 kg Intake & Output: Intake and Output Totals x24h 03/07/19 03/08/19 03/09/19 23:59 23:59 23:59 Intake Total 150 970 Balance 150 970 - Lab Results Lab Results: 03/09/19 05:17 03/08/19 16:24 Other Lab Results: Lab Results x24hrs 03/09/19 03/08/19 03/08/19 Range/Units 05:17 19:49 16:24 WBC 16.5 H (4.8-10.8) x10^3/uL RBC 3.51 L (4.20-5.40) 10^6/uL Hgb 10.9 L (12.0-16.0) g/dL Hct 32.0 L (37.0-47.0) % MCV 91.1 (81.0-99.0) fL MCH 31.0 (27.0-31.0) pg MCHC 34.0 (32.0-36.0) g/dL RDW 12.9 (12.0-15.0) % Plt Count 333 (130-450) 10^3/uL MPV 7.3 L (7.9-10.8) fL Neut # (Auto) 14.1 H (1.5-6.6) 10^3/uL Lymph # (Auto) 1.7 (1.5-3.5) 10^3/uL [place] # (Auto) 0.6 (0.0-1.0) 10^3/uL Eos # (Auto) 0.0 (0.0-0.7) 10^3/uL Baso # (Auto) 0.0 (0.0-0.1) 10^3/uL Absolute Nucleated RBC 0.01 x10^3/uL Nucleated RBC % 0.0 /100WBC Sodium 139 (135-145) mmol/L Potassium 3.6 (3.5-5.0) mmol/L Chloride 101 (101-111) mmol/L Carbon Dioxide 26 (21-32) mmol/L Anion Gap 12.0 (6-13) BUN 12 (6-20) mg/dL Creatinine 0.7 (0.4-1.0) mg/dL Estimated GFR (MDRD) 99 (>89) Glucose 109 H (70-100) mg/dL Calcium 9.4 (8.5-10.3) mg/dL Ur Specific [place] 1.020 (1.002-1.030) Urine HCG, Qual NEGATIVE 03/08/19 Range/Units 16:24 WBC 17.7 H (4.8-10.8) x10^3/uL RBC 4.01 L (4.20-5.40) 10^6/uL Hgb 12.3 (12.0-16.0) g/dL Hct 36.5 L (37.0-47.0) % MCV 91.1 (81.0-99.0) fL MCH 30.7 (27.0-31.0) pg MCHC 33.7 (32.0-36.0) g/dL RDW 13.0 (12.0-15.0) % Plt Count 366 (130-450) 10^3/uL MPV 6.9 L (7.9-10.8) fL Neut # (Auto) 13.2 H (1.5-6.6) 10^3/uL Lymph # (Auto) 2.7 (1.5-3.5) 10^3/uL [place] # (Auto) 1.6 H (0.0-1.0) 10^3/uL Eos # (Auto) 0.2 (0.0-0.7) 10^3/uL Baso # (Auto) 0.1 (0.0-0.1) 10^3/uL Absolute Nucleated RBC 0.00 x10^3/uL Nucleated RBC % 0.0 /100WBC Sodium (135-145) mmol/L Potassium (3.5-5.0) mmol/L Chloride (101-111) mmol/L Carbon Dioxide (21-32) mmol/L Anion Gap (6-13) BUN (6-20) mg/dL Creatinine (0.4-1.0) mg/dL Estimated GFR (MDRD) (>89) Glucose (70-100) mg/dL Calcium (8.5-10.3) mg/dL Ur Specific [place] (1.002-1.030) Urine HCG, Qual abscess gm stain and C&S results pending - Current Medications Current Medications: Current Medications Generic Name Dose Route Start Last Admin Trade Name Freq PRN Reason Stop Dose Admin Acetaminophen 650 mg 03/08/19 21:28 03/09/19 07:51 Tylenol PO 650 mg Q6H PRN Administration PAIN Enoxaparin Sodium 40 mg 03/09/19 09:00 03/09/19 09:17 Lovenox SUBQ 40 mg DAILY MARVA Administration Piperacillin Sod/Tazobactam 100 mls @ 200 mls/hr 03/09/19 00:00 03/09/19 06:27 Sod 3.375 gm/ Sodium Chloride IV Infused Q6HR MARVA Infusion Ibuprofen 600 mg 03/08/19 21:28 03/08/19 22:21 Motrin PO 600 mg Q6HR PRN Administration PAIN Sodium Chloride 10 ml 03/09/19 01:00 03/09/19 09:20 Normal Saline Flush 0.9% IVP Not Given 0100,0900,1700 MARVA - Physical Exam Wound/Incisions: positive: Healing well, Drainage (minimal serosanguinous), Erythema improving General Appearance: positive: No acute distress, Alert Neurologic/Psychiatric: positive: Oriented x3 Comments/Other: Dressing changed: erythema persists but is improved; retreating from demarcation line and less intense; swelling improved ABX Reporting Has patient been on IV antibiotics over the past 48 hours?: No Impression/Plan - Problem List Problem List: Left breast mastitis/abscess/cellulitis/sepsis: improving clinically; janine kocytosis and cellulitis persists however. Plan: continue present therapy; allow pt to pump from affected breast as tolerated; continue IV anbitiotics today; hopefully home tomorrow on po antibiotics if continues to improve.
[2019-03-09] MEDS ORDERED: SODIUM CHLORIDE 0.9% 500 ML IV ONE (11:51)
[2019-03-09] MEDS ORDERED: SODIUM CHLORIDE 0.9% 500 ML IV PRN (14:32)
[2019-03-09] MEDS: IBUPROFEN 600 MG TABLET PO PRN (21:29)
[2019-03-10] MEDS: PIPERACILLIN/TAZOBACTAM 3.375 GM in SODIUM CHLORIDE 0.9% MINIBAG 100 ML IV SCH ×2 (00:32→05:50)
[2019-03-10] MEDS: SODIUM CHLORIDE FLUSH 0.9% 10 ML SYRINGE IVP SCH ×2 (00:34→08:30)
[2019-03-10 05:45] LABS: BASOPHILS % (AUTO) 0.4 %; EOSINOPHILS # (AUTO) 0.1 10^3/uL (0.0-0.7); EOSINOPHILS % (AUTO) 1.4 %; HGB - HEMOGLOBIN 10.4 g/dL (12.0-16.0); LYMPHOCYTES # (AUTO) 2.7 10^3/uL (1.5-3.5); LYMPHOCYTES % (AUTO) 28.1 %; MEAN CORPUSCULAR HEMOGLOBIN 31.5 pg (27.0-31.0); MEAN CORPUSCULAR HGB CONC 34.2 g/dL (32.0-36.0); MEAN CORPUSCULAR VOLUME 92.1 fL (81.0-99.0); MEAN PLATELET VOLUME 6.9 fL (7.9-10.8); MONOCYTES # (AUTO) 0.7 10^3/uL (0.0-1.0); MONOCYTES % (AUTO) 7.4 %; NEUTROPHILS % (AUTO) 62.7 %; PLT - PLATELET COUNT 337 10^3/uL (130-450); RED CELL DISTRIBUTION WIDTH 13.1 % (12.0-15.0); WHITE BLOOD COUNT 9.5 x10^3/uL (4.8-10.8)
[2019-03-10 08:14] VITALS: BP 103/61
--- NOTE | 2019-03-10 08:52 | PROVIDER PROGRESS NOTE ---
Subjective - General Admit Date: 03/08/19 Procedure Date: 03/08/19 Post Op Days: 2 Procedure Performed: I & D left breast abscess - Review of Systems Wound/Incisions: positive: Healing well, Drainage (minimal serosanguinous), Erythema improving Drain Type: luis Drain Output Description: serosanguinous Approximate mls Output: 10 ml over 24 hours General: positive: No symptoms (feels well) Objective - Patient Data Reviewed Vital Signs: Yes Vital Signs: Vital Signs x48h Temp Pulse Resp BP Pulse Ox 03/10/19 07:45 36.5 C 64 16 103/61 100 Weight: Weight 03/08/19 03/09/19 03/10/19 23:59 23:59 23:59 Weight (kg) 81 kg Intake & Output: Intake and Output Totals x24h 03/08/19 03/09/19 03/10/19 23:59 23:59 23:59 Intake Total 150 3010 1140 Balance 150 3010 1140 - Lab Results Lab Results: 03/10/19 05:33 03/08/19 16:24 Other Lab Results: Lab Results x24hrs 03/10/19 Range/Units 05:33 WBC 9.5 (4.8-10.8) x10^3/uL RBC 3.30 L (4.20-5.40) 10^6/uL Hgb 10.4 L (12.0-16.0) g/dL Hct 30.4 L (37.0-47.0) % MCV 92.1 (81.0-99.0) fL MCH 31.5 H (27.0-31.0) pg MCHC 34.2 (32.0-36.0) g/dL RDW 13.1 (12.0-15.0) % Plt Count 337 (130-450) 10^3/uL MPV 6.9 L (7.9-10.8) fL Neut # (Auto) 6.0 (1.5-6.6) 10^3/uL Lymph # (Auto) 2.7 (1.5-3.5) 10^3/uL [place] # (Auto) 0.7 (0.0-1.0) 10^3/uL Eos # (Auto) 0.1 (0.0-0.7) 10^3/uL Baso # (Auto) 0.0 (0.0-0.1) 10^3/uL Absolute Nucleated RBC 0.00 x10^3/uL Nucleated RBC % 0.0 /100WBC - Current Medications Current Medications: Current Medications Generic Name Dose Route Start Last Admin Trade Name Freq PRN Reason Stop Dose Admin Acetaminophen 650 mg 03/08/19 21:28 03/09/19 07:51 Tylenol PO 650 mg Q6H PRN Administration PAIN Enoxaparin Sodium 40 mg 03/09/19 09:00 03/09/19 09:17 Lovenox SUBQ 40 mg DAILY MARVA Administration Piperacillin Sod/Tazobactam 100 mls @ 200 mls/hr 03/09/19 00:00 03/10/19 06:38 Sod 3.375 gm/ Sodium Chloride IV Infused Q6HR MARVA Infusion Sodium Chloride 500 mls @ 0 mls/hr 03/09/19 14:32 03/10/19 08:30 Normal Saline 0.9% IV Infused Q24H PRN Infusion TKO RATE TKO Ibuprofen 600 mg 03/08/19 21:28 03/09/19 21:29 Motrin PO 600 mg Q6HR PRN Administration PAIN Sodium Chloride 10 ml 03/09/19 01:00 03/10/19 08:30 Normal Saline Flush 0.9% IVP 10 ml 0100,0900,1700 MARVA Administration Sodium Chloride 10 ml 03/08/19 21:28 03/09/19 11:56 Normal Saline Flush 0.9% IVP 10 ml PRN PRN Administration NEEDED PER PROVIDER ORDERS - Physical Exam Wound/Incisions: positive: Healing well, Erythema improving General Appearance: positive: No acute distress, Alert Comments/Other: Breast: left: erythema almost completely resolved; dressing changed: minimal milky bloody purulent drainage; minimal tenderness; drain removed. ABX Reporting Has patient been on IV antibiotics over the past 48 hours?: Yes Impression/Plan - Problem List Problem List: Left breast mastitis/abscess/sepsis--improving; Plan: home today on oral antibiotics daily wound care f/u my office in 1 week.
--- NOTE | 2019-03-10 09:39 | Discharge Plan ---
Discharge Plan Disposition: Home, Self Care Condition: Good Prescriptions: RX: Acetaminophen 650 mg PO Q6H PRN #30 tablet PRN Reason: Pain Amox/Clav 875/125 [Augmentin] 1 each PO Q12H 3 Days #6 tablet RX: Ibuprofen 400 mg PO Q6H PRN #30 tablet PRN Reason: Pain Diet: Regular Activity Restrictions: Activity as Tolerated Shower Restrictions: No Driving Restrictions: No Weight Bearing: Full Weight Instruction Topics: Acetaminophen tablets or caplets, Ibuprofen tablets and capsules, Amoxicillin Clavulanic Acid tablets, ED Abscess IandD Additional Instructions or Follow Up instructions: Dr. Zhang in 1 week; call [phone] for appt. No Smoking: If you smoke, Please STOP! Call for help. Follow-up with: Joey Camarillo MD [Primary Care Provider] -
--- NOTE | 2019-03-10 09:52 | DISCHARGE SUMMARY ---
"Discharge Summary Admit Date: 03/08/19 Discharge Date: 03/10/19 Discharging Provider: Dr. Serge Zhang Primary Care Provider: Dr. Camarillo Code Status: Attempt Resuscitation Condition at Discharge: Good Discharge Disposition: 01 Home, Self Care Discharge Facility Name: [facility] - DIAGNOSES Admission Diagnoses: Left breast abscess/mastitis/cellulitis/sepsis Discharge Diagnoses with Status of Each Condition: Resolving - HPI History of Present Illness: See surgical consultation by Dr. Zhang - CONSULTS | PROCEDURES Procedures: I & D and biopsy of left breast abscess on 03/08/19 - HOSPITAL COURSE Hospital Course: Pt was taken to the OR on the day of admission where the above procedures were carried out without complication. See dictated op note for details. Postop course was uneventful, with resolution of signs and sx of sepsis, cellulitis and abscess after durgical drainage and parenteral antibiotic therapy with pip/lyn. She was felt stable for d/c home on oral antibiotics (Augmentin) on PO Day 2. Drain was removed prior to discharge. Daily dressing changes were instructed. She will follow up with Dr. Zhang in his office in 1 week. - ALLERGIES Allergies/Adverse Reactions: Allergies Allergy/AdvReac Type Severity Reaction Status Date / Time No Known Drug Allergies Allergy Verified 10/21/17 18:55 - MEDICATIONS Home Medications: Ambulatory Orders Medication Instructions Recorded Confirmed Acetaminophen 650 mg PO Q6H PRN #30 tablet 03/10/19 Amox/Clav 875/125 [Augmentin] 1 each PO Q12H 3 Days #6 tablet 03/10/19 Ibuprofen 400 mg PO Q6H PRN #30 tablet 03/10/19 - PHYSICAL EXAM AT DISCHARGE General Appearance: positive: No acute distress, Alert Neurologic/Psychiatric: positive: Oriented x3 Physical Exam Other/Comments: breast abscess healing well; erythema almost completely resolved; soft tissue swelling improved; drain removed. - LABS Result Diagrams: 03/10/19 05:33 03/08/19 16:24 Other Lab Results: Breast abscess culture and gm stain are pending at this time. - SEPSIS Current Stage of Sepsis: Resolved Possible source of Sepsis: Other (breast) Confirmed Source and Organism (if known) of Sepsis: breast abscess; C&S pending Sepsis Criteria: WBC count greater than 12,000 or less than 4000 - FOLLOW UP Follow Up: One week with Dr. Zhang - TIME SPENT Time Spent in Discharge (Minutes): 30"
== END 2019-03-10 09:50 | disposition home or self-care (01) | DRG 855 ==
LOC: ED 15:49 → SDS 18:45 → MS2 21:28
PROVIDERS: ADMIT Internal Medicine Gastroenterology; ATTEND Internal Medicine Gastroenterology
PROC: 0H9U3ZZ Drainage of Left Breast, Percutaneous Approach (ICD-10-PCS; 2019-03-08)
PROC: 0HBU0ZX Excision of Left Breast, Open Approach, Diagnostic (ICD-10-PCS; principal; 2019-03-08 19:29)
DX: A41.9 Sepsis, unspecified organism (principal); N61.1 Abscess of the breast and nipple
CPT/HCPCS: 36415; 76642; 80048; 81025; 85025; 96365; 99283; 99284; A9270; J1650; J7120; 87205

== ENCOUNTER 2022-05-29 08:45 | Outpatient (CLI) | payer BC ==
--- NOTE | 2022-05-29 14:27 | XRAY Report ---
PROCEDURE: Elbow 3 View LT INDICATIONS: ELBOW PAIN TECHNIQUE: 3 views of the elbow were acquired. COMPARISON: 05/09/2022 FINDINGS: Bones: No evidence for acute or subacute fractures. No dislocations. No suspicious bony lesions. Soft tissues: No elbow joint effusion. No suspicious soft tissue calcifications. IMPRESSION: Left elbow without acute or subacute fracture. Normal alignment. If there is continued clinical concern for pathology or occult fracture, consider follow-up imaging w ith advanced imaging (CT, MRI, bone scan) if symptoms persist. Reviewed by: Richard Knowles MD on 05/29/2022 2:26 PM PDT Approved by: Richard Knowles MD on 05/29/2022 2:26 PM PDT Station ID: [id number]
== END 2022-05-29 08:46 | disposition home or self-care (01) ==
LOC: DI.WOS 08:45
PROVIDERS: ATTEND Physician Assistant Surgical
DX: S56.212A Strain of other flexor muscle, fascia and tendon at forearm level, left arm, initial encounter (principal)

== ENCOUNTER 2022-11-08 08:00 | Outpatient (CLI) | payer BC ==
[2022-11-09 18:54] LABS: CHLAMYDIA TRACHOMATIS DNA NEGATIVE (NEGATIVE); NEISSERIA GONORRHOEAE DNA NEGATIVE (NEGATIVE); TRICHOMONAS VAGINALIS DNA NEGATIVE (NEGATIVE)
== END 2022-11-08 23:59 | disposition home or self-care (01) ==
LOC: LAB.WC 08:00
PROVIDERS: ATTEND Nurse Practitioner
DX: Z11.3 Encounter for screening for infections with a predominantly sexual mode of transmission (principal)
CPT/HCPCS: 87491; 87591; 87661